=== PATIENT | male | born 1990 | race Caucasian/White ===

== ENCOUNTER 2023-02-17 13:22 | Emergency (ER) | payer BC, SELFPAY ==
[2023-02-17 13:32] VITALS: BP 137/86; PULSE 70; RESP 16; TEMP 36.6; O2SAT 100
--- NOTE | 2023-02-17 14:09 | ED.SKABFB ---
HPI - Skin/Abscess/Foreign Bdy General Chief complaint: Skin/Abscess/Foreign Body Stated complaint: R ARM ABSCESS/REDNESS/PAIN Time Seen by Provider: 02/17/23 14:09 Source: patient, RN notes reviewed and old records reviewed Mode of arrival: ambulatory Limitations: no limitations History of Present Illness HPI narrative: 32 year old male presents to [facility] care with complaints of having a small lesion to his right upper medial arm with surrounding redness and swelling 8.5cm X 9cm with small amount of purulent drainage from site. Patient reports that he had similar area on his right shoulder region one week previously and completed one week of Keflex.Patient got a new tatoo to area approximately one month ago and they shaved his arm prior to tattoo and was told that the shoulder area was related to follicular infection. Patient reports that he has been cleaning and caring for tattoo as he had been instructed. MD complaint: abscess/boil Onset (ago): day(s) (2) Tetanus up to date: yes Location: RUE Severity: moderate Treatments prior to arrival: other (cleansing area with soap and water completed one week of Keflex, used prid to lesion and hydrocortisone cream to redness area) Related Data Allergies Allergy/AdvReac Type Severity Reaction Status Date / Time No Known Allergies Allergy Verified 02/17/23 13:36 Review of Systems Review of Systems: CONSTITUTIONAL: Denies fever, chills, or sweats. CARDIOVASCULAR: Denies chest pain, palpitations, or edema. RESPIRATORY: Denies cough or dyspnea. GASTROINTESTINAL: Denies abdominal pain, nausea, vomiting SKIN: Reports redness and swelling with small lesion to right medial upper arm,small amount of pustular drainage no fluctuation of tissue. scabbed healing lesion to right upper arm near shoulder MUSCULOSKELETAL: Denies myalgia. NEUROLOGIC: Denies headache, numbness All systems reviewed & are unremarkable except as noted in HPI and below PMFSH Social History Social History (Updated 02/19/23 @ 21:45 by Ava Lawton NP) Smoking status: Never smoker Living arrangements: with family Gender identity (if verbalized by the patient): Male Comments At time of signature, agree with nursing past medical, surgical, social and family history. There is no relevant family history pertinent to the presenting complaint Exam Narrative: GENERAL: Well-appearing, well-nourished, and in no acute distress. HEAD: Normocephalic, atraumatic. EYES: PERRLA and EOMI. ENT: Nares clear, no rhinorrhea or epistaxis. Mucous membranes moist. NECK: Supple.no lymphadenopathy CHEST: Clear to auscultation. No respiratory distress.SAO2 100% on room air HEART: Regular rate and rhythm. No murmur heard. Normal peripheral pulses. ABDOMEN: Soft, nontender, nondistended, normal active bowel sounds. EXTREMITIES: Normal range of motion. No edema. SKIN: Warm, dry. Erythema, tenderness, warmth 8.5cm X9cm surrounding small lesion with small amount of purulent discharge 0,25cm with no fluctuance of tissue.wound culture obtained of drainage and sent for analysis NEURO: No focal deficits. Alert and oriented x3. Course Course Emergency Course: Patient is aware of diagnosis, understands and agrees to treatment plan. Anticipatory guidance given. Patient agrees to follow-up as directed and is aware of reasons to seek care at the emergency department. Portions of this record may have been created with voice recognition software Level of Care: Express Care Visit Vital Signs Vital signs: Vital Signs Temperature 36.6 C 02/17/23 13:32 Pulse Rate 70 02/17/23 13:32 Respiratory Rate 16 02/17/23 13:32 Blood Pressure 137/86 02/17/23 13:32 Pulse Oximetry 100 02/17/23 13:32 Temperature 36.6 C 02/17/23 13:32 Pulse Rate 70 02/17/23 13:32 Respiratory Rate 16 02/17/23 13:32 Blood Pressure 137/86 02/17/23 13:32 Pulse Oximetry 100 02/17/23 13:32 Reviewed MDM - Skin/Abscess/Foreign Noreen Pedroza
== END 2023-02-17 14:30 | disposition home or self-care (01) ==
PROVIDERS: Emergency Provider Registered Nurse
DX: L02.413 Cutaneous abscess of right upper limb (principal)
CPT/HCPCS: 87070; 87075; 87147; 87181; 87186; 87205; 99213; G0463